=== PATIENT | female | born 1960 | race Caucasian/White ===

== ENCOUNTER 2016-09-19 09:08 | Observation (INO) | payer OTHER ==
[~2016-09-19] VITALS: Ht 157.5 cm; Wt 106.5 kg
[~2016-09-19 09:08] MED LIST: ASPIRIN325 MG PO; BETAMETHASONE D15 GM TP; CALICUM 500+D1 EACH PO; DAY TIME COLD-1 EACH PO; DESOWEN118 ML TP; FISH OIL500 MG PO; MOTRIN800 MG PO; NYQUIL D COLD295 ML PO; PRAVACHOL80 MG PO; TORADOL10 MG PO; TUMS500 MG PO; XANAX0.25 MG PO
[2016-09-19 09:33] LABS: MCH 26.5 PG (29.0-34.0); MCHC 32.7 G/DL (30.0-36.0); MEAN PLAT.VOLUME 9.9 uM^3 (9.5-12.4); PLATELET COUNT 285 K/uL (156-360); RBC DIS.WIDTH-CV 13.4 % (11.8-14.6); RBC DIS.WIDTH-SD 39.2 % (39-53); RED BLOOD COUNT 5.43 M/uL (3.80-5.20); WHITE BLOOD COUNT 6.1 K/uL (4.1-10.2)
[2016-09-19 09:44] LABS: CHLORIDE 105 mEq/L (99-109); POTASSIUM 3.9 mEq/L (3.7-5.4); SODIUM 140 mEq/L (136-147)
[2016-09-19 09:46] LABS: GLUCOSE 135 mg/dL (70-99)
[2016-09-19 09:47] LABS: ANION GAP 12 MEQ/L (2-14)
[2016-09-19 09:49] LABS: D-DIMER ELISA 0.23 mg/L FEU (< 0.57)
[2016-09-19 09:50] LABS: GFR ESTIMATE (CALCULATED) 49 mL/min/
[2016-09-19 09:51] LABS: UREA NITROGEN (BUN) 12 mg/dL (9-23)
[2016-09-19 10:00] LABS: TROP-I INTERPRETATION NEGATIVE; TROPONIN-I < 0.01 ng/mL (0.0-0.30)
[2016-09-19] MEDS ORDERED: OMEGA 3 500 SO1 EACH PO (14:38)
[2016-09-19] MEDS ORDERED: PROTONIX40 MG PO (14:41)
[2016-09-19] MEDS ORDERED: LO-DOSE ASPIRIN81 M2 PO (14:41)
[2016-09-19] MEDS ORDERED: PROAIR HFA8.5 GM IH (14:42)
[2016-09-19] MEDS ORDERED: SYMBICORT60 INHALA1 IH (14:43)
[2016-09-19] MEDS ORDERED: MOTRIN800 MG PO (14:44)
[2016-09-19] MEDS ORDERED: NIGHT TIME COL180 ML PO (14:56)
[2016-09-19 17:25] VITALS: BP 133/72
[2016-09-19 17:29] LABS: TROP-I INTERPRETATION NEGATIVE; TROPONIN-I < 0.01 ng/mL (0.0-0.30)
[2016-09-19 20:00] VITALS: BP 127/74
[2016-09-19 22:27] LABS: TROP-I INTERPRETATION NEGATIVE; TROPONIN-I < 0.01 ng/mL (0.0-0.30)
[2016-09-20] VITALS: BP 122/75
[2016-09-20 12:15] VITALS: BP 164/81
== END 2016-09-20 12:27 | disposition home or self-care (01) ==
LOC: EME 09:08 → EDOF 13:41 → 5WEST 17:22
PROVIDERS: Emergency Medicine; Internal Medicine
DX: R07.89 Other chest pain (principal); J44.9 Chronic obstructive pulmonary disease, unspecified; I10 Essential (primary) hypertension; G47.33 Obstructive sleep apnea (adult) (pediatric); E66.9 Obesity, unspecified; E78.5 Hyperlipidemia, unspecified; M19.90 Unspecified osteoarthritis, unspecified site; Z68.41 Body mass index [BMI] 40.0-44.9, adult; F17.200 Nicotine dependence, unspecified, uncomplicated
CPT/HCPCS: 71010; 80048; 84484; 85027; 85379; 93005; 94640; 94640 76; 94660; 94760; 99202; 99281; 99285; G0378

== ENCOUNTER → 2017-12-01 | Outpatient (CLI) | payer OTHER ==
[~2017-12-01] MED LIST changes: +LO-DOSE ASPIRIN81 M2 PO; +NIGHT TIME COL180 ML PO; +OMEGA 3 500 SO1 EACH PO; +PROAIR HFA8.5 GM IH; +PROTONIX40 MG PO; +SYMBICORT60 INHALA1 IH
== END | disposition home or self-care (01) ==
LOC: NUC 08:48
DX: G25.0 Essential tremor (principal)
CPT/HCPCS: 78607; A9584